=== PATIENT | female | born 1935 | race Caucasian/White ===

== ENCOUNTER 2019-04-09 17:06 | Inpatient (IN) | payer SELFPAY ==
[~2019-04-09] VITALS: Ht 152.4 cm; Wt 55.1 kg
[2019-04-09 17:16] VITALS: BP 160/67
--- NOTE | 2019-04-09 17:22 | NUR ---
ED Nurse Note: Pt brought in to ER by son from home due to stroke like symptom. pt aao x4 and ambulatory with a cane. pt stated "I think i had a stroke on Monday." skin clean and intact. calm and cooperative. both hands strength are equl and no drift on both arms and legs but asymetrical smiling noted. pt reported that she noticed Rt side face drooping while she was brushing her teeth on Monday. pt fully oriented and vss as documented. pt had high blood pressure, systolic over 180mmHg but after pt laid down and rested little bit it went down to 160/67mmHg. pt denied chest pain but dizziness present.
--- NOTE | 2019-04-09 17:25 | NUR ---
ED Nurse Note: pt is in gown and on cardiac rehabilitation program director.
--- NOTE | 2019-04-09 17:29 | Emergency Room Report ---
History of Present Illness General Chief Complaint: Stroke Symptoms Source: Patient Present Illness HPI 83-year-old female coming in with strokelike symptoms. Patient says that she woke up on Monday and she noticed that she had slurred speech and right-sided facial droop. She says that she thought it would go away so that is why she did not seek medical care immediately. She says that there was never any episode of confusion. But she did feel that her right arm was more weak than the left. No fall no headache no trauma. She says that this is never happened to her in the past. Allergies: Coded Allergies: No Known Allergies (Unverified , 04/09/19) Patient History Past Medical History: see triage record Past Surgical History: none Pertinent Family History: none Reviewed Nursing Documentation: PMH: Agreed; PSxH: Agreed Nursing Documentation-PMH Past Medical History: No History, Except For Hx Cardiac Problems: Yes - GA 20 years ago Hx Hypertension: Yes Review of Systems All Other Systems: negative except mentioned in HPI Physical Exam Vital Signs Date Time Temp Pulse Resp B/P (MAP) Pulse Ox O2 Delivery O2 Flow Rate FiO2 04/09/19 17:08 98.1 87 17 184/90 (121) 99 Room Air Sp02 EP Interpretation: reviewed, normal General Appearance: alert, GCS 15, mild distress Head: normocephalic, atraumatic Eyes: bilateral eye normal inspection, bilateral eye PERRL, bilateral eye EOMI ENT: other - Right-sided facial droop Neck: normal inspection, full range of motion, supple Respiratory: normal inspection, lungs clear, normal breath sounds, no respiratory distress, no retraction, no wheezing, speaking full sentences, chest symmetrical Cardiovascular #1: normal inspection, regular rate, rhythm, normal capillary refill Cardiovascular #2: 2+ radial (R), 2+ radial (L) Gastrointestinal: normal inspection, non tender, soft, non-distended, no guarding Musculoskeletal: normal inspection, back normal, normal range of motion, non- tender Neurologic: alert, oriented x3, responsive, motor strength/tone normal, sensory intact, other - Sheet with slurred speech. Able to lift both eyebrows. Right-sided facial droop. Motor strength 5 out of 5 upper and lower extremities. [id number] is normal. [id number] normal bilaterally. Psychiatric: normal inspection, judgement/insight normal, memory normal Procedures Critical Care Time Critical Care Time 40 minutes of CC time Critical care time necessary in order to assess and manage the high probability of life threatening deterioration to neurologic system, required frequent reassessment. Excludes all billable procedures. Medical Decision Making Diagnostic Impression: Primary Impression: Facial droop Additional Impressions: Slurred speech CVA (cerebral vascular accident) UTI (urinary tract infection) ER Course 83-year-old female with right-sided facial droop DDX: Stroke, electrolyte disturbance, intracranial bleed Plan: Obtain labs, ua, EKG, CXR CT head ER course: Patient has been monitored during ED stay, HD stable No new neurological symptoms abx given for UTI Disposition: Patient is to be admitted to telemetry D/W hospitalist Dr Alfaro Please note that this Emergency Department Report was dictated using [employer] transcription supervisor technology software, occasionally this can lead to erroneous entry secondary to interpretation by the dictation equipment. EKG Diagnostic Results EP Interpretation: Yes Rate: normal Rhythm: NSR ST Segments: No acute changes ASA given to patient: No Rhythm Strip EP Interpretation: Yes Rate: 82 Rhythm: NSR, no PVCs, no ectopy Chest X-ray CXR: Ordered: Yes 1 view Indication: Stroke EP interpretation: Yes Interpretation: No consolidation, no effusion, no PTX, no acute cardiopulmonary disease Impression: No acute disease Electronically signed by Otis Salinas MD Laboratory Tests Test 04/09/19 17:28 04/09/19 18:15 White Blood Count 7.0 K/UL (4.8-10.8) Red Blood Count 4.58 M/UL (4.20-5.40) Hemoglobin 13.8 G/DL (12.0-16.0) Hematocrit 41.2 % (37.0-47.0) Mean Corpuscular Volume 90 FL (80-99) Mean Corpuscular Hemoglobin 30.0 PG (27.0-31.0) Mean Corpuscular Hemoglobin Concent 33.4 G/DL (32.0-36.0) Red Cell Distribution Width 12.6 % (11.6-14.8) Platelet Count 175 K/UL (150-450) Mean Platelet Volume 6.7 FL (6.5-10.1) Neutrophils (%) (Auto) 63.2 % (45.0-75.0) Lymphocytes (%) (Auto) 26.6 % (20.0-45.0) Monocytes (%) (Auto) 7.3 % (1.0-10.0) Eosinophils (%) (Auto) 1.8 % (0.0-3.0) Basophils (%) (Auto) 1.2 % (0.0-2.0) Prothrombin Time 10.2 SEC (9.30-11.50) Prothrombin Time INR 1.0 (0.9-1.1) PTT 27 SEC (23-33) Sodium Level 142 MMOL/L (136-145) Potassium Level 3.9 MMOL/L (3.5-5.1) Chloride Level 107 MMOL/L (98-107) Carbon Dioxide Level 27 MMOL/L (21-32) Anion Gap 8 mmol/L (5-15) Blood Urea Nitrogen 19 mg/dL (7-18) H Creatinine 1.0 MG/DL (0.55-1.30) Estimate Glomerular Filtration Rate mL/min (>60) Glucose Level 165 MG/DL (74-106) H Calcium Level 9.3 MG/DL (8.5-10.1) Total Bilirubin 0.3 MG/DL (0.2-1.0) Aspartate Amino Transferase (AST) 24 U/L (15-37) Alanine Aminotransferase (ALT) 25 U/L (12-78) Alkaline Phosphatase 73 U/L (46-116) Troponin I 0.000 ng/mL (0.000-0.056) Total Protein 6.6 G/DL (6.4-8.2) Albumin 3.6 G/DL (3.4-5.0) Globulin 3.0 g/dL Albumin/Globulin Ratio 1.2 (1.0-2.7) Urine Color Pale yellow Urine Appearance Slightly cloudy Urine pH 5 (4.5-8.0) Urine Specific Miles 1.020 (1.005-1.035) Urine Protein Negative (NEGATIVE) Urine Glucose (UA) Negative (NEGATIVE) Urine Ketones Negative (NEGATIVE) Urine Blood 1+ (NEGATIVE) H Urine Nitrite Negative (NEGATIVE) Urine Bilirubin Negative (NEGATIVE) Urine Urobilinogen Normal MG/DL (0.0-1.0) Urine Leukocyte Esterase 3+ (NEGATIVE) H Urine RBC 2-4 /HPF (0 - 2) H Urine WBC 15-20 /HPF (0 - 2) H Urine Squamous Epithelial Cells Few /LPF (NONE/OCC) Urine Bacteria Few /HPF (NONE) Last Vital Signs Date Time Temp Pulse Resp B/P (MAP) Pulse Ox O2 Delivery O2 Flow Rate FiO2 04/09/19 17:16 98.1 79 17 160/67 99 Room Air Disposition: ADMITTED INPATIENT Condition: Serious Scripts No Active Prescriptions or Reported Meds Otis Salinas M.D. Apr 09, 2019 17:29
--- NOTE | 2019-04-09 17:39 | NUR ---
ED Nurse Note: pt went down for CT by a tech in stable condition.
[2019-04-09 17:46] LABS: BASOPHILS % (AUTO) 1.2 % (0.0-2.0); EOSINOPHILS % (AUTO) 1.8 % (0.0-3.0); HEMATOCRIT 41.2 % (37.0-47.0); HEMOGLOBIN 13.8 G/DL (12.0-16.0); LYMPHOCYTES % (AUTO) 26.6 % (20.0-45.0); MEAN CORPUSCULAR VOLUME 90 FL (80-99); MONOCYTES % (AUTO) 7.3 % (1.0-10.0); NEUTROPHILS % (AUTO) 63.2 % (45.0-75.0); PLATELET COUNT 175 K/UL (150-450); RED BLOOD COUNT 4.58 M/UL (4.20-5.40); RED CELL DISTRIBUTION WIDTH 12.6 % (11.6-14.8)
--- NOTE | 2019-04-09 17:52 | NUR ---
ED Nurse Note: pt came back from CT and x-ray in stable condition.
[2019-04-09 17:54] LABS: ANION GAP 8 mmol/L (5-15); BLOOD UREA NITROGEN 19 mg/dL (7-18); CALCIUM 9.3 MG/DL (8.5-10.1); CARBON DIOXIDE 27 MMOL/L (21-32); CHLORIDE 107 MMOL/L (98-107); POTASSIUM 3.9 MMOL/L (3.5-5.1); SODIUM 142 MMOL/L (136-145)
[2019-04-09 18:04] LABS: ALANINE AMINOTRANSFERASE 25 U/L (12-78); ALBUMIN 3.6 G/DL (3.4-5.0); ALBUMIN/GLOBULIN RATIO 1.2 (1.0-2.7); ALKALINE PHOSPHATASE 73 U/L (46-116); ASPARTATE AMINO TRANSFERASE 24 U/L (15-37); BILIRUBIN,TOTAL 0.3 MG/DL (0.2-1.0)
[2019-04-09 18:46] LABS: APPEARANCE,URINE SLIGHTLY CLOUDY; BILIRUBIN, URINE NEGATIVE (NEGATIVE); COLOR,URINE PALE YELLOW; GLUCOSE, URINE (UA) NEGATIVE (NEGATIVE); KETONES,URINE NEGATIVE (NEGATIVE); LEUKOCYTE ESTERASE ,URINE 3+ (NEGATIVE); NITRITE,URINE NEGATIVE (NEGATIVE); PH,URINE 5 (4.5-8.0); PROTEIN,URINE NEGATIVE (NEGATIVE); UROBILINOGEN,URINE NORMAL MG/DL (0.0-1.0)
--- NOTE | 2019-04-09 19:00 | NUR ---
ED Nurse Note: received report from charito feng rn. patient resting comfortably in bed with nad. vss. family member at bedside. pt aware of pending admission.
--- NOTE | 2019-04-09 19:00 | NUR ---
HAND-OFF: Report given to Aldair Cortes RN. no orders to carry at this moment.
[2019-04-09 19:06] VITALS: BP 156/69
[2019-04-09] MEDS ORDERED: cefTRIAXone 1 GM in NS 55 ML IVPB ONE (19:15)
--- NOTE | 2019-04-09 19:50 | NUR ---
TRANSFER TO FLOOR: Patient transferred to [facility] 210-1 as ordered, per md taty. Report given to regino shen. belongigns list completed with receiving rn.
[2019-04-09 19:55] VITALS: BP 176/90
--- NOTE | 2019-04-09 19:55 | NUR ---
NURSE NOTES: Pt received from Aldair Cortes RN alert and oriented x4 with no acute s/s of distress noted. Accompanied by son Roshan who lives with his Mom. Pt has visible facial asymmetry with R sided facial drooping and mild right sided weakness. Radial pulses equal bilaterally, skin warm to touch, strength on upper and lower extremities mild weakness on right side. IV site asymptomatic and patent. Skin intact upon admission but pt has light green/purple bruise on R trochanter. Per pt, she fell on Monday morning after trying to get up out of bed and states that she uses a cane now since the stroke-like symptoms happened for her. Belongings all with patient upon admission - cane and underwear. BSC at bedside, educated on fall risks, pt verbalized understanding. Per pt, she has no home meds she takes. Bed alarm on, bed in lowest position, call light and belongings within reach.
--- NOTE | 2019-04-09 20:15 | NUR ---
NURSE NOTES: Left message for Dr. Seaman for admission orders. Will carry out orders and continue to monitor pt. - Full code - MRI brain with no contrast in AM - carotid vertebral duplex in aM - 2d echo in AM - Lipid Panel in AM - Cardiac Diet - Heparin 5000 U SQ BID, hydralazine 25 mg PO q8h PRN for SBP above 160 - Aspirin 81 mg PO daily - Losartan 20 mg PO daily
[2019-04-09] MEDS: HydrALAZINE 25mg tab ORAL PRN (20:51)
[2019-04-09] MEDS: Heparin 5000 units/ml inj SUBQ SCH (21:00)
[2019-04-09 21:15] VITALS: BP 155/85
[2019-04-10] VITALS: BP 107/70
--- NOTE | 2019-04-10 07:20 | NUR ---
HAND-OFF: Report given to LYNDSAY Duckworth. No acute s/s of distress noted.
--- NOTE | 2019-04-10 07:21 | NUR ---
NURSE NOTES: Nurse report given by LYNDSAY Munguia. Patient's awake, sitting in bed and eating her breakfast. She appears to be comfortable, no sign of distress or SOB. She denies having any pain. Patient AO X 4.Patient shows right side facial droopiness, right side weakness when assessing arm strengths. Right trochanter bruise, but skin is intact. IV side is patent and asymptomatic. Bed in lowest position, break engaged and call light within reach. Bed side commode is at bedside, bed alarm engaged. Patient's cane is at bedside. Will continue to monitor.
[2019-04-10 07:55] LABS: CHOLESTEROL 314 MG/DL (< 200); HDL CHOLESTEROL 46 MG/DL (40-60); TRIGLYCERIDES 166 MG/DL (30-150)
[2019-04-10 08:00] VITALS: BP 152/69
[2019-04-10] MEDS ORDERED: Levofloxacin 500mg tab ORAL SCH ×2 (08:22→08:23)
[2019-04-10] MEDS: Losartan 25mg tab ORAL SCH (08:54)
[2019-04-10] MEDS: Aspirin Baby 81mg ORAL SCH (08:54)
[2019-04-10] MEDS: Heparin 5000 units/ml inj SUBQ SCH ×2 (08:55→21:06)
--- NOTE | 2019-04-10 10:15 | History and Physical Report ---
DATE OF ADMISSION: 04/09/2019 CHIEF COMPLAINT: Stroke. HISTORY OF PRESENT ILLNESS: The patient is an 83-year-old female. She states that she has a history of hypertension, does not take any medications, presented with complaints of possible stroke. According to the patient, she woke up in the morning noted that she had a right facial droop, that her speech was slurred, and she seemed slightly weaker on the right side. She presented to the emergency room. On evaluation there, CT scan was done the reports of which are currently pending. In light of the patient's symptoms, she is admitted for further evaluation and care. She denies any headaches. No fevers. No chills. PAST MEDICAL HISTORY: As above. PAST SURGICAL HISTORY: None. CURRENT MEDICATIONS: None. FAMILY HISTORY: Significant for "heart problems." SOCIAL HISTORY: Negative for tobacco, ethanol, or drugs. REVIEW OF SYSTEMS: Negative except for the above. PHYSICAL EXAMINATION: VITAL SIGNS: Temperature 98.2, pulse 88, respirations 18, and blood pressure 107/70. GENERAL: The patient is well developed. She has a right facial droop. NECK: Supple. No bruits. HEART: Regular rate and rhythm. LUNGS: Clear. ABDOMEN: Soft, nontender, and nondistended. EXTREMITIES: Without clubbing or cyanosis. NEUROLOGIC: The patient seems slightly weak on the right side, possibly 4/5. PERTINENT DATA: LDL was 229. White count 7, hemoglobin 13. Sodium 142, potassium 3.9, creatinine 1. UA showed 20 wbc's with leukocyte esterase positive. ASSESSMENT: This is an 83-year-old female admitted with complaints of right facial droop and right-sided weakness, possibly secondary to acute stroke. She is out of the window for tPA. PLAN: MRI of the brain, carotids, echo. Monitor on telemetry for atrial fibrillation. Lipid therapy. Umer Seaman M.D. DR: FERNY JOB#: [id number] CC:
--- NOTE | 2019-04-10 10:30 | NUR ---
NURSE NOTES: Patient is off the floor for MRI, transported by Sea. Tele box is removed by order, and equip tech is notified.
--- NOTE | 2019-04-10 11:19 | Diagnostic Imaging Report ---
Indication: 83-year-old female slurred speech several days ago. Technique: Contiguous 5 mm thick transaxial imaging of the head obtained in a Siemens Sensation [address] scanner. Soft tissue and bone windows generated. Automatic Exposure Control was utilized. Total Dose length Product (DLP): 1238.[address] Dose Index Volume (CTDIvol): 70.38 mGy Comparison: none Findings: There is approximately 8 mm hypodensity in the left putamen extending to wilcox radiata. This has the appearance of an older lacunar infarct. There is no mass effect or edema. Correlate clinically. Generalized atrophy of the brain noted with prominence of the sulci, ventricles, basal cisterns. The bones are unremarkable in appearance. IMPRESSION: Lacunar infarct in the left basal ganglia region suspected. This may be old. Correlate clinically. Generalized atrophy of the brain The CT scanner at [facility] is accredited by the [employer] and the scans are performed using dose optimization techniques as appropriate to a performed exam including Automatic Exposure control.
--- NOTE | 2019-04-10 11:45 | NUR ---
NURSE NOTES: Patient is back from the MRI. corporate concierge is applied and turned on. Obstetrician Gynecologist is notified. Patient is in stable condition, comfortable, denies pain. No sign of distress or SOB. Patient stated feeling a little bit dizzy. I gave her some orange juice. Continued to display right side weakness and right facial droopiness. Bed at lowest position, break engaged and call light within reach. Will continue to monitor.
--- NOTE | 2019-04-10 11:57 | NUR ---
MRI BRAIN COMPLETED.
[2019-04-10 12:00] VITALS: BP 123/68
--- NOTE | 2019-04-10 12:50 | Diagnostic Imaging Report ---
Indication: Right-sided weakness. Acute CVA Technique: The head was imaged in a 1.5 Yamilka magnet. Sequences obtained include sagittal and axial T1 FLAIR, axial T2 fast spin echo with fat saturation, axial T2 FLAIR, diffusion and ADC map. Comparison: None There is a 1 to 1.5 cm focus of diffusion restriction involving the posterior aspect of the left putamen extending into the left wilcox radiata. This is consistent with acute small vessel CVA. There is no significant edema or mass effect identified. There is no evidence of hemorrhage. Generalized atrophy of the brain noted with prominence of the sulci ventricles and basal cisterns. Corpus callosum and sella, osseous bone marrow signal appear normal. Cerebellum is unremarkable other than mild atrophy. IMPRESSION: Small acute CVA involving the left basal ganglia region extending into wilcox radiata. Generalized atrophy of the brain. Critical value communication. Findings were discussed via telephone with Dr. Umer Seaman via telephone 12:25pm, 04/10/2019.
--- NOTE | 2019-04-10 13:29 | NUR ---
CASE MANAGEMENT:REVIEW 83 YR OLD FEMALE FROM HOME TO ER CC: RT SIDED WEAKNESS AND FACIAL DROOPING SINCE MONDAY NIGHT SI:CVA. UTI 98.1 87 17 184/90 99% ON RA GLUCOSE+165 IS: CT HEAD CHEST XRAY : TO TELEMETRY PLAN: MRI BRAIN CAROTID DUPLEX PT EVAL NEURO CHECKS Q4
--- NOTE | 2019-04-10 14:15 | Diagnostic Imaging Report ---
Indication: Dyspnea Comparison: None A single view chest radiograph was obtained. Findings: No definite infiltrate or pulmonary vascular congestion identified. The heart is borderline enlarged. The aorta is mildly enlarged consistent with atherosclerotic vascular disease. The bones are osteopenic. Impression: No acute disease
[2019-04-10 16:00] VITALS: BP 151/81
--- NOTE | 2019-04-10 16:12 | Cardiology Report ---
APPROVED REPORT EXAM: Two-dimensional and M-mode echocardiogram with Doppler and color Doppler. INDICATION CVA/TIA M-Mode DIMENSIONS IVSd0.8 (0.7-1.1cm)Left Atrium (MM)3.6 (1.6-4.0cm) LVDd3.6 (3.5-5.6cm)Aortic Root2.9 (2.0-3.7cm) PWd1.1 (0.7-1.1cm)Aortic Cusp Exc.1.6 (1.5-2.0cm) IVSs1.3 cm LVDs2.5 (2.5-4.0cm) PWs1.2 cm Normal left ventricular chamber size, systolic function and wall motion. Left ventricular ejection fraction estimated to be 65%. No evidence of pericardial effusion. All cardiac chamber sizes are within normal limits. Focal aortic valve sclerosis with adequate cusp excursion. Thickened mitral valve leaflets with normal excursion. Mitral annulus and aortic root calcification. Pulmonic valve not well visualized. Normal tricuspid valve structure. IVC at normal size with physiologic collapse. A color flow and spectral Doppler study was performed and revealed: No aortic regurgitation. Trace mitral regurgitation. Mitral diastolic velocities suggest reduced left ventricular relaxation c/w mild LV diastolic dysfunction (Grade I). Trace tricuspid regurgitation. Tricuspid systolic velocities suggests peak right ventricular systolic pressure of 10mmHg. Mild pulmonic regurgitation present.
--- NOTE | 2019-04-10 17:06 | Cardiology Report ---
APPROVED REPORT EKG Measurement Heart [id number] Normal sinus rhythm Normal ECG
--- NOTE | 2019-04-10 18:37 | Diagnostic Imaging Report ---
APPROVED REPORT CPT Code: 10492 Vascular Symptoms CVA/TIA: Doppler Spectral Velocity Analysis RightLeft arteries. The Doppler spectral flow analysis indicates the degree of stenosis is minimal (30%) in the common carotid artery, moderate (50-60%) in the internal carotid artery, and moderate (50% - 60%) in the external carotid artery. arteries. The Doppler spectral flow analysis indicates the degree of stenosis is minimal (30%) in the common carotid artery, moderate (50-60%) in the internal carotid artery, and moderate (50% - 60%) in the external carotid artery. Note: Abnormally tortuous curved course of origin of the left internal carotid artery. SUBCLAVIAN/VERTEBRAL - The subclavian and vertebral arteries are patent, without evidence of stenosis or steal, bilaterally.
--- NOTE | 2019-04-10 19:04 | NUR ---
HAND-OFF: Report given to LYNDSAY Macedo. Patient is comfortable, no sign of distress or SOB.
--- NOTE | 2019-04-10 19:10 | NUR ---
NURSE NOTES: Received patient from Penny UMANA. Patient on room air, no s/s respiratory distress. Bed in low position, locked, bed alarm on, call light within reach. Alert and oriented x 4, calm and cooperative.
[2019-04-10 20:00] VITALS: BP 164/77
[2019-04-10] MEDS ORDERED: Atorvastatin 20mg tab ORAL SCH (21:00)
--- NOTE | 2019-04-10 22:00 | NUR ---
NURSE NOTES: Patient was able to ambulate to the bathroom with a cane without assistance.
[2019-04-10 23:06] VITALS: BP 120/72
[2019-04-11] VITALS: BP 154/98
[2019-04-11 04:00] VITALS: BP 136/75
--- NOTE | 2019-04-11 07:49 | NUR ---
NURSE NOTES: Received report from LYNDSAY Macedo. Pt in bed, talkative, no complaints of pain, no apparent distress noted, discussed plan of care, assisted pt with breakfast tray, bed in lowest position, call light within reach.
[2019-04-11 08:00] VITALS: BP 172/81
--- NOTE | 2019-04-11 08:04 | General Progress Note ---
Assessment/Plan Problem List: (1) Slurred speech ICD Codes: R47.81 - Slurred speech SNOMED: 323830847 (2) UTI (urinary tract infection) ICD Codes: N39.0 - Urinary tract infection, site not specified SNOMED: 26848413 (3) CVA (cerebral vascular accident) ICD Codes: I63.9 - Cerebral infarction, unspecified SNOMED: 435669468 (4) Facial droop ICD Codes: R29.810 - Facial weakness SNOMED: 61893383 Status: stable Assessment/Plan: antiplt rx bp rx statin rx swallow eval dc if cleared by pt Subjective ROS Limited/Unobtainable: No Constitutional: Reports: malaise, weakness HEENT: Reports: no symptoms Cardiovascular: Reports: no symptoms Respiratory: Reports: no symptoms Gastrointestinal/Abdominal: Reports: no symptoms Genitourinary: Reports: no symptoms Neurologic/Psychiatric: Reports: no symptoms Endocrine: Reports: no symptoms Hematologic/Lymphatic: Reports: no symptoms Allergies: Coded Allergies: No Known Allergies (Unverified , 04/09/19) All Systems: reviewed and negative except above Subjective stable weakness. MRi with+stroke. echo no thrombus. carotids with mod stenosis. no afib on monitor Objective Last 24 Hour Vital Signs Date Time Temp Pulse Resp B/P (MAP) Pulse Ox O2 Delivery O2 Flow Rate FiO2 04/11/19 04:00 97.7 86 16 136/75 (95) 96 04/11/19 03:47 71 04/11/19 00:00 97.8 68 16 154/98 (116) 98 04/10/19 23:20 70 04/10/19 23:06 79 120/72 (88) 04/10/19 21:00 Room Air 04/10/19 20:00 77 04/10/19 20:00 98.2 81 16 164/77 (106) 95 04/10/19 16:00 83 04/10/19 16:00 97.8 76 18 151/81 (104) 96 04/10/19 12:00 98.1 80 20 123/68 (86) 98 04/10/19 12:00 80 04/10/19 09:00 Room Air 04/10/19 08:54 152/69 Intake and Output 04/10/19 04/11/19 19:00 07:00 Intake Total 360 ml Output Total 650 ml Balance -290 ml Intake Oral 360 ml Output Urine Total 650 ml # Voids 2 4 Height (Feet): 5 Height (Inches): 0.00 Weight (Pounds): 121 General Appearance: WD/WN, alert Neck: supple Respiratory/Chest: chest wall non-tender, lungs clear, normal breath sounds Abdomen: normal bowel sounds, non tender, soft, no organomegaly Neurologic: alert, oriented x 3 - +right facial droop. ?slight sided weakness Umer Seaman MD Apr 11, 2019 08:04
[2019-04-11] MEDS: Losartan 25mg tab ORAL SCH (08:06)
[2019-04-11] MEDS: Heparin 5000 units/ml inj SUBQ SCH (08:11)
[2019-04-11] MEDS: Aspirin Baby 81mg ORAL SCH (09:09)
[2019-04-11] MEDS: HydrALAZINE 25mg tab ORAL PRN (09:15)
[2019-04-11 09:30] VITALS: BP 147/84
--- NOTE | 2019-04-11 10:12 | NUR ---
CASE MANAGEMENT:REVIEW 04/11/19 SI: CVA 98.4 77 18 172/81 95% ON RA IS: LEVAQUIN PO QD LIPITOR PO QHS ASA PO QD COZAAR PO QD HEPARIN SQ Q12 : TELEMETRY STATUS DCP: FROM HOME PLAN: PT AND [facility]
--- NOTE | 2019-04-11 10:54 | NUR ---
P.T Note: P.T evaluation completed and treatment initiated. Please refer to P.T evaluation for current functional status. Pt is alert, O x 4 , pleasant and cooperative. Pt denied c/o pain however reports c/o being generally weak and fatigued as well as limited use of RUE. Pt presented acute Left CVA affecting her speech , balance , RUE strength and coordination. Pt currently requires MIN A x 1 for bed mobility and transfer activities. Pt also require MIN/hand in hand assist for gait/ambulation activities. Skilled P.T service is warranted to improve her strength, balance and coordination to increase her mobility independence and safety for return to [facility]. Recommend ARU VS SNF for intensive rehab at [place]. Pt is cleared for OOB activities with nursing assist. Thank you for this referral.
[2019-04-11 11:54] VITALS: BP 153/83
--- NOTE | 2019-04-11 13:52 | NUR ---
NOTES: REFERRED BY DR. THAKKAR FOR SWALLOW EVAL AND MOD BARIUM SWALLOW STUDY, SEE FULL REPORT TO FOLLOW. DYSPHAGIA RISK FACTORS FOR THIS 83 Y.O.F.: ACUTE ISSUES: ACUTE LEFT SUBCORTICAL CVA (BRAIN MRI SMALL ACUTE CVA LEFT BASAL GANGLIA EXTENDING TO RITCHIE RADIATA AND GENERALIZED BRAIN ATROPHY). LUNGS CLEAR NOW H/O CARDIAC/AK 1998, AND HTN. 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 NO OVERT S/S OF ASPIRATION BUT HAS RISK IF PRECAUTIONS NOT USED. TONGUE DEVIATES RIGHT WITH PROTRUSION,SPEED IS SLOW BUT HAS FAIR STRENGTH AND ROM MILDLY REDUCED LABIAL STRENGTH AND ROM AT REST AND WITH RETRACTION THIN LIQUIDS GIVEN SEQUENTIAL SIPS, ABLE TO SWALLOW 3 OZ OF WATER (ERICSON SWALLOW PROTOCOL) W/O OVERT ASPIRATION BUT HAD ORAL SPILLAGE ON RIGHT WITH CUP BENEFITS FROM USING STRAW ON LEFT SIDE GROSSLY FUNCTIONAL SWALLOW AND FAIR HYOLARYNGEAL EXCURSION WITH PUREED TSP NO ORAL RESIDUE NOR S/S OF ASPIRATION MASTICATED SOLIDS (1/2 CRACKER) SLOWER CHEWING BUT MISSING UPPER MOLARS AND LEFT LOWER MOLARS,NEEDED LIQUID WASH TO CLEAR RESIDUE ON THE RIGHT MOLARS. NO ORAL RESIDUE NOR S/S OF OVERT ASPIRATION. HAS SILENT ASP RISK DUE TO STROKE DX VARIABLE ADEQUATE INTAKE RECOMMENDATIONS: COMPLETE MOD BARIUM SWALLOW STUDY TO FURTHER ASSESS SWALLOW, DETERMINE SILENT ASP RISK AND ATTEMPT TRIAL TX TECHNIQUES. DISLIKES DIET DOWNGRADES AND WANTS TO HAVE REGULAR TEXTURE (CARDIAC) AND THIN LIQUIDS. CONTINUE WITH THIS DIET WITH SUPERVISION (AND ASSIST IF NEEDED TO CUT MEAT HAS R DOMINANT HAND/UE DEFICIT) WITH POSTED ASPIRATION PRECAUTIONS POSTED. 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 EDUCATED/TRAINED RN, PATIENT, AND HER SON IN POSTED ASPIRATION PRECAUTIONS. D/W RN FADI), (BIJAN), PT, AND HER SON Addendum: 04/11/19 at 1359 by LUIS CONTRERAS CORRECTION MIN RESIDUE ON RIGHT WITH MASTICATED SOLID (STUCK ON TEETH) USED LIQUID WASH TO CLEAR
[2019-04-11 16:00] VITALS: BP 156/77
--- NOTE | 2019-04-11 16:33 | NUR ---
NURSE NOTES: Pt's son, Roshan at bedside stating he want to take pt home. Discussed plan of care for pt with son. Provided Roshan with Dr. Seaman's office number and RN contacted Dr. Seaman to notify that family would like to DC with Home Health for PT and does not want pt to go to SNF and that they would like to speak to . RN asked Dr. Seaman about CM order for Home health for PT
--- NOTE | 2019-04-11 16:44 | NUR ---
NURSE NOTES: RN offer to ambulate with pt in [place] on three occasions, each time pt refused
[2019-04-11] MEDS ORDERED: LIPITOR20 MG ORAL (16:57)
[2019-04-11] MEDS ORDERED: LOSARTAN POTASS25 MG ORAL (16:57)
[2019-04-11] MEDS ORDERED: ASPIRIN81 MG ORAL (16:57)
--- NOTE | 2019-04-11 17:42 | NUR ---
NURSE NOTES: Stroke education provided to pt from [facility]. None available through Discharge application
--- NOTE | 2019-04-11 18:08 | NUR ---
NURSE NOTES: Pt discharge home with all belongings. Accompanied by family, educational and dc papers reviewed with pt and family. IV removed intact, ID band removed, Tele box returned. Follow up information with Dr. Seaman provided to pt and family. Pt stable for Discharge..
--- NOTE | 2019-04-12 08:38 | Discharge Summary ---
Discharge Summary Discharge Summary _ DATE OF ADMISSION: 04/09/2019 DATE OF DISCHARGE: 04/11/2019 DISCHARGED BY: Dr. Umer Seaman BRIEF HOSPITAL COURSE: The patient is an 83-year-old female, with history of hypertension, although does not take any medications, presented to ED with complaints of possible stroke. According to the patient, she woke up in the morning and noted right facial droop and slurred speech. She seems slightly weaker on the right side. She then presented to ED for further evaluation. On evaluation at the ED, blood pressure was 184/90, pulse rate 87, 99% oxygen saturation. Blood work did not show any leukocytosis. Hemoglobin and hematocrit were stable. Electrolytes were normal. Glucose 165. Troponin was negative. Urinalysis showed +3 leukocyte esterase, 15-20 urine WBC, 2-4 urine RBC, negative nitrite. Chest x-ray did not show any acute disease. CT of the head showed infarct in the left basal ganglia region. She was then admitted for evaluation of CVA. It was outside the window for TPA. She was admitted to monitored floor. She was given antiplatelet therapy. She was given Lipitor. She was given heparin for DVT prophylaxis. She was given losartan for blood pressure control. She was placed on levofloxacin for possible urine infection. Echocardiogram done showed EF 65% with normal left ventricular size, function and wall motion. There was no aortic regurgitation. Carotid duplex scan showed moderate stenosis in the internal and external carotid artery bilaterally. MRI of the brain showed a small acute CVA involving the left basal ganglial region extending into wilcox radiata. She was continued on physical therapy and speech therapy. Urine culture showed growth of mixed gram-positive organisms. 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 DISCHARGE MEDICATIONS: Refer to Discharge Medication List. DISCHARGE INSTRUCTIONS: Follow-up in a week. I have been assigned to complete a discharge summary on this account, I was not involved with the patient's management.--MUNDO Rodriguez Jacqueline Robles NP Apr 12, 2019 08:38
== END 2019-04-11 18:11 | disposition home or self-care (01) | DRG 65 ==
LOC: EMR 17:32 → 2E 17:51 → EDBEDREQ 19:47
DX: I63.9 Cerebral infarction, unspecified (principal); N39.0 Urinary tract infection, site not specified; R47.81 Slurred speech; R29.810 Facial weakness; I10 Essential (primary) hypertension
CPT/HCPCS: 36415; 70450; 70551; 71045; 80053; 80061; 81003; 84484; 85025; 85610; 85730; 87086; 92610; 93005; 93306; 93880; 96365; 99291